=== PATIENT | female | born 1950 | race Caucasian/White ===

== ENCOUNTER → 2019-10-26 | Outpatient (CLI) | payer MEDICARE, OTHER ==
[2019-10-26 21:25] LABS: RHEUMATOID FACTOR-SCREEN <15 IU/mL (0-29)
== END ==
LOC: COL.LAB 10:31
PROVIDERS: Internal Medicine Pulmonary Disease
DX: J84.9 Interstitial pulmonary disease, unspecified (principal)

== ENCOUNTER 2019-12-30 12:50 | Emergency (ER) | payer MEDICARE, OTHER ==
[~2019-12-30] VITALS: Ht 157.5 cm; Wt 84.5 kg
[2019-12-30 12:56] VITALS: BP 149/70; TEMP 98.4
[2019-12-30] MEDS ORDERED: CEPHALEXIN500 M1 PO (13:38)
[2019-12-30] MEDS ORDERED: DOXYCYCLINE 10100 MG PO (13:38)
[2019-12-30 14:00] VITALS: PULSE 72
== END 2019-12-30 14:00 | disposition home or self-care (01) ==
LOC: COL.ER 12:50
DX: L03.211 Cellulitis of face (principal)

== ENCOUNTER 2020-01-24 19:21 | Emergency (ER) | payer MEDICARE, OTHER ==
[~2020-01-24] VITALS: Ht 157.5 cm; Wt 81.8 kg
[~2020-01-24 19:21] MED LIST: CEPHALEXIN500 M1 PO; DOXYCYCLINE 10100 MG PO
[2020-01-24 19:26] VITALS: BP 124/84; PULSE 98; TEMP 98
[2020-01-24] MEDS ORDERED: CELLCEPT 5500 MG/TAB PO (19:43)
[2020-01-24] MEDS ORDERED: GLUCOTROL XL2.5 MG PO (19:43)
[2020-01-24] MEDS ORDERED: LIPITOR 40MG TA40 MG PO (19:44)
[2020-01-24] MEDS ORDERED: ZESTRIL 5MG5 MG PO (19:44)
[2020-01-24] MEDS ORDERED: DOXYCYCLINE 10100 MG PO (19:45)
[2020-01-24] MEDS ORDERED: CEPHALEXIN500 M1 PO (19:45)
== END 2020-01-24 19:49 | disposition home or self-care (01) ==
LOC: COL.ER 19:21
DX: L03.211 Cellulitis of face (principal)

== ENCOUNTER 2020-04-28 22:52 | Inpatient (IN) | payer MEDICARE, OTHER ==
[~2020-04-28] VITALS: Ht 157.5 cm; Wt 78.6 kg
[~2020-04-28 22:52] MED LIST changes: +CELLCEPT 5500 MG/TAB PO; +GLUCOTROL XL2.5 MG PO; +LIPITOR 40MG TA40 MG PO; +ZESTRIL 5MG5 MG PO
[2020-04-28 23:45] LABS: BASO # 0.1 (0.0-0.2); BASO % 0.5 % (0.0-2.0); EOS # 0.2 (0.0-0.7); EOS % 2.3 % (0-4.0); GRAN % 72.6 % (42.2-75.2); HEMATOCRIT 38.7 % (37.0-47.0); HEMOGLOBIN 11.4 g/dl (12.5-16.0); LYMPH # 1.6 (1.2-3.4); LYMPH % 16.8 % (20.0-51.0); MEAN CELL VOLUME 89 fl (80.0-100.0); MEAN CORPUSCULAR HEMOGLOBIN 26 pg (27.0-31.0); MEAN CORPUSCULAR HGB CONC 30 g/dl (33.0-37.0); MEAN PLATELET VOLUME 10.1 fl (7.4-10.4); MONO # 0.7 (0.1-0.6); MONO % 7.6 % (1.7-9.3); PLATELET COUNT 255 K/mm3 (130-400); RED BLOOD COUNT 4.33 M/mm3 (4.10-5.30); REDCELL DISTRIBUTION WIDTH-CV 15.6 % (11.5-14.5)
[2020-04-29] VITALS (7 sets, daily range): BP systolic 121–152; BP diastolic 64–73; PULSE 55–93; TEMP 97.5–98.5
[2020-04-29 00:06] LABS: TROPONIN-I 0.045 ng/mL (0.000-0.035)
[2020-04-29 00:10] LABS: INR 1.3 (0.8-3.0); PROTHROMBIN TIME 14.5 SECONDS (9.7-12.8)
[2020-04-29 00:15] LABS: ALBUMIN 3.6 gm/dL (3.5-5.0); BILIRUBIN,TOTAL 0.4 mg/dL (0.0-1.0); CALCIUM 8.5 mg/dL (8.4-10.2); CREATININE, serum 0.67 (0.52-1.25); POTASSIUM 3.6 mmol/L (3.4-5.0); TOTAL PROTEIN 7.2 gm/dL (6.4-8.2)
[2020-04-29 04:01] LABS: TSH w REFLEX 1.75 uIU/mL (0.465-4.680)
[2020-04-29 04:38] LABS: COLLECTION METHOD CLEAN CATCH
[2020-04-29 04:43] LABS: PH 6 (5-8); SQUAMOUS EPITHELIAL None Seen /hpf; URINE APPEARANCE Clear; URINE BACTERIA None Seen /hpf; URINE BILIRUBIN Negative (NEGATIVE); URINE BLOOD Negative (NEGATIVE); URINE COLOR Colorless; URINE GLUCOSE Negative (NEGATIVE); URINE KETONE Negative (NEGATIVE); URINE LEUKOCYTE ESTERASE Negative (NEGATIVE); URINE NITRATE Negative (NEGATIVE); URINE PROTEIN(semi-quant) Negative (NEGATIVE); URINE RBC None Seen /hpf; URINE UROBILINOGEN Negative (NEGATIVE)
[2020-04-29] MEDS ORDERED: PRILOSEC 20MG20 MG PO (05:39)
[2020-04-29] MEDS ORDERED: [UNRECOGNIZED DRUG - OTHER] PO (05:39)
[2020-04-29] MEDS ORDERED: [UNRECOGNIZED DRUG - OTHER] PO (05:40)
[2020-04-29] MEDS ORDERED: CLEAR LUNGS PO (05:40)
--- NOTE | 2020-04-29 06:12 | NUR ---
PATIENT WAS BROUGHT TO THE FLOOR FROM THE ED. PATIENT IS A SBA IN WITH CHF. PATIENT IS ALERT AND ORIENTATED. WILL REPORT OFF TO DAY SHIFT
[2020-04-29 07:50] LABS: C-REACTIVE PROTEIN 2.8 mg/dL (0.0-0.9); PHOSPHOROUS 4.1 mg/dL (2.5-4.5)
[2020-04-29 08:54] LABS: CALCIUM 8.9 mg/dL (8.4-10.2); CREATININE, serum 0.73 (0.52-1.25)
--- NOTE | 2020-04-29 09:04 | NUR ---
Assessment completed, alert/oriented, vital signs stable, patient reports "feeling about the same" today, she is in no resp.distress at rest but stated with minimal exertion/actvity she gets very dyspnic, lungs are diminished throughout but CTA, heart RRR, distal pulses are palapble, trace-1+ edema to BLE, good UOP with lasix given last night, cardiology consulted, patient sitting up in bed eating breakfast, denies needs
[2020-04-29 09:19] LABS: HEMATOCRIT 39.3 % (37.0-47.0); HEMOGLOBIN 11.8 g/dl (12.5-16.0); MEAN CELL VOLUME 88 fl (80.0-100.0); MEAN CORPUSCULAR HEMOGLOBIN 26 pg (27.0-31.0); MEAN CORPUSCULAR HGB CONC 30 g/dl (33.0-37.0); MEAN PLATELET VOLUME 10.7 fl (7.4-10.4); PLATELET COUNT 311 K/mm3 (130-400); RED BLOOD COUNT 4.47 M/mm3 (4.10-5.30); REDCELL DISTRIBUTION WIDTH-CV 15.8 % (11.5-14.5)
--- NOTE | 2020-04-29 12:36 | NUR ---
SW met with patient about DC plan. Patient in room with Roommate who stated she was the patients caregiver Jaymie Santana . Patient reports that she resides locally. Patient shares that both her DTRs have DPOA and she has already provided that information. Patient gave verbal authorization to speak in front of guest. Patient shares that hse obtains Medications from [employer] and her PCP is Dr. Jodi Lee at [facility]. Patient reports that she O2 at 2 lit at rest daily and 3 lit while walking. Patient reports that she has a transport chair that she uses while in the community but not at home. Declined HHS. No care concerns other than the test results. Brother will transport home. Client reports that he [place] approx. 2 [address] from the hospital. Will continue to follow for care supports.
[2020-04-30] VITALS (19 sets, daily range): BP systolic 93–152; BP diastolic 49–78; PULSE 58–96; TEMP 97.5–98.7
--- NOTE | 2020-04-30 05:43 | NUR ---
PATIENT HAS HAD A RESTFUL NIGHT. PATIENT WAS ON THE EDGE OF THE BED COUGHING AND SAID SHE COULDNT BREATHE. RESPIRATORY IN TO EVALUATE PATIENT. OXYGEN WAS BUMPED DURING THIS TIME AND THEN SHE WAS PLACED BACK ON 3L. PATIENT HAS DENIED ANY OTHER NEEDS THROUGH THE NIGHT AND HAS SLEPT. WILL REPORT OFF TO DAY SHIFT.
[2020-04-30 06:58] LABS: CHOLESTEROL RISK RATIO 3.8; CREATININE, serum 0.97 (0.52-1.25); POTASSIUM 3.7 mmol/L (3.4-5.0)
[2020-04-30 07:01] LABS: BASO # 0.1 (0.0-0.2); BASO % 0.8 % (0.0-2.0); EOS # 0.6 (0.0-0.7); EOS % 6.1 % (0-4.0); GRAN # 5.4 (1.4-6.5); GRAN % 58.2 % (42.2-75.2); HEMATOCRIT 41.5 % (37.0-47.0); HEMOGLOBIN 12.3 g/dl (12.5-16.0); LYMPH # 2.4 (1.2-3.4); LYMPH % 25.8 % (20.0-51.0); MEAN CELL VOLUME 89 fl (80.0-100.0); MEAN CORPUSCULAR HEMOGLOBIN 26 pg (27.0-31.0); MEAN CORPUSCULAR HGB CONC 30 g/dl (33.0-37.0); MEAN PLATELET VOLUME 10.1 fl (7.4-10.4); MONO # 0.8 (0.1-0.6); MONO % 8.9 % (1.7-9.3); PLATELET COUNT 324 K/mm3 (130-400); RED BLOOD COUNT 4.66 M/mm3 (4.10-5.30); REDCELL DISTRIBUTION WIDTH-CV 15.9 % (11.5-14.5)
[2020-04-30 07:14] LABS: TROPONIN-I 0.039 ng/mL (0.000-0.035)
--- NOTE | 2020-04-30 08:16 | NUR ---
Pt resting in bed at this time. Pt alert and oriented x3. Pt denies pain. INT to left wrist patent and without s/s of complications. Pt denies any other needs at this time. Call light within reach. Will continue to monitor
--- NOTE | 2020-04-30 13:44 | NUR ---
SEE MERGE FOR MEDICATION ADMINISTRATION TIMES AND INTRA AND POST SEDATION ASSESSMENTS.
--- NOTE | 2020-04-30 16:45 | NUR ---
No evidence of bleeding noted around right radial site with arm band in place. 5 mls air removed per orders. Call light in reach.
--- NOTE | 2020-04-30 18:40 | NUR ---
No s/s of bleeding to right radial access site. Remaining 9 mls air removed from right wrist band. Band still in place to monitor for bleeding.
--- NOTE | 2020-04-30 19:00 | NUR ---
Pt sitting in bed at this time eating dinner. Complaints of aching pain to lower back throughout shift that was 3/10. INT to left wrist patent and without complications. Left wrist heart cath site free of complications. Pt denies any other needs at this time.
--- NOTE | 2020-04-30 19:11 | NUR ---
Report given to PILAR Long
--- NOTE | 2020-04-30 20:30 | NUR ---
Resting in bed. Assessment complete. Bases bilaterally crackles otherwise clear. Heart sounds normal. Bowels active x4. Pulses present throughout. No edema noted. INT left forearm without complications. Right radial heart cath site CDI with bandaide in place. Patient denies pain. Denies needs. Call light in reach.
--- NOTE | 2020-04-30 21:15 | NUR ---
Patient given bed bath at this time. Right radial site CDI. Denies needs at this time. Call light in reach.
[2020-05-01] VITALS (8 sets, daily range): BP systolic 90–119; BP diastolic 48–64; PULSE 59–85; TEMP 97.6–98.8
--- NOTE | 2020-05-01 02:46 | NUR ---
Patient reports dizziness, headache and inability to keep eyes open. VS stable. BS 113. Patient provided with snack at patient request. Reports "being tired." Educated patient on importance of sleep. Television turned off and lighting decreased. Denies other needs. Call light in reach.
--- NOTE | 2020-05-01 04:00 | NUR ---
Patient reports sx resolving with resting. Will continue to monitor.
--- NOTE | 2020-05-01 06:12 | NUR ---
Patient had x1 episode of dizziness and headache. Resolved with resting. Reports this AM "I havent slept in over 2 days." Patient continues to rest this AM. Otherwise uneventful night.
--- NOTE | 2020-05-01 07:32 | NUR ---
Report given to PILAR Jasso
--- NOTE | 2020-05-01 08:37 | NUR ---
Assessment completed, alert/oriented, vital signs stable / blood pressures are a little soft and will notify hospitalist, heart RRR/ distal pulses are palpable, lungs CTA but very diminished throughtout, dry non-productive cough noted, on baseline 3L. o2, s/p left heart cath yesterday with stents place/ right radial access site bandaid is C/D/I with no hematoma or issues noted, patient stated she does not feel well enought to be discharged today, she is up to bathroom and I have asssited her back to bed, denies other needs at this time
[2020-05-01 11:36] LABS: CREATININE, serum 0.78 (0.52-1.25)
--- NOTE | 2020-05-01 12:03 | NUR ---
SW met with the patient and the patient's roommate/caregiver, Jaymie, to review discharge plan and to discuss PT's recommendation of home health and a FWW. The patient and Jaymie report that the plan is still to return back home upon discharge. Jaymie reports that the patient was receiving pulmonary rehab at the [facility] prior to hospitalization and that they would like to resume that upon discharge instead of home health. The patient also confirmed this. Jaymie reports that they plan to reach out to [place] and schedule an appointment for the pulmonary rehab. The patient and Jaymie report that the patient has a rolaider walker and may even have a FWW somewhere at home. Jaymie reports that she will look for the FWW. The patient and Jaymie had no other questions or concerns for SW. SW to continue to follow as needed.
--- NOTE | 2020-05-01 21:00 | NUR ---
Patient assessed at this time. Alert and oriented x 4, and able to make needs known. Denies having pain and discomfort at this time. Peripheral INT to left wrist. Site without redness, warmth, swelling, and pain. Denies SOB and dyspnea. LS CTA in upper lobes, diminished in lower. On oxygen at 3 L/min via NC. HRR. Capillary refill less than 3 seconds. Non-tenting skin turgor. BSAx4. Abdomen soft and non-tender. No edema. Resting in bed with call light within reach. Bandaid to right wrist, radial site from heart cath is CDI.
[2020-05-02 04:11] VITALS: BP 126/66; PULSE 64; TEMP 97.4
--- NOTE | 2020-05-02 05:11 | NUR ---
Patient has been resting in bed with call light within reach. Had denied having pain and discomfort this shift.
--- NOTE | 2020-05-02 06:11 | NUR ---
Patient woke up with frequent cough. Clear sputum. Unable to control cough for a while, and oxygen saturations decreased to 70s on oxygen at 3 L/min via NC. Increased oxygen level to 5 L/min via NC. As patient's cough stopped, oxygen level increased to 98% on the 5 L. Patient reports she frequently wakes up with these coughing spells and she is used to her oxygen level decreasing at home at these times as well. Patient no longer coughing at this time. Oxygen level 96% on 4 L/min via NC. Denies SOB and dyspnea at this time.
[2020-05-02 06:49] LABS: CALCIUM 8.8 mg/dL (8.4-10.2); CREATININE, serum 0.7 (0.52-1.25); POTASSIUM 4.3 mmol/L (3.4-5.0)
[2020-05-02 07:15] VITALS: BP 99/52; PULSE 64; TEMP 97.7
--- NOTE | 2020-05-02 07:18 | NUR ---
called Dr. Patino to report critical lab value of CO2 41.
--- NOTE | 2020-05-02 09:11 | NUR ---
PT WORKED WITH PHYSICAL THERAPY, MAINTAINED SATS OF 91% ON 6L DURING EXERCISE. PT UPSET SHE HAS NOT BEEN GETTING OMEPRAZOLE FOR HER GERD. UP TO CHAIR EATING BREAKFAST, DID NOT EAT MEAT CLAIMING IT INFLAMES THE GERD. DENIES PAIN OR DISCOMFORT. NO OTHER NEEDS AT THIS TIME. PT REQUESTED A SHOWER BEFORE SHE LEFT.
--- NOTE | 2020-05-02 09:56 | NUR ---
The patient is to discharge back home with her roommate/caregiver today, 05/02, and plans to resume pulmonary rehab at [facility]. SW met with the patient and her roommate and presented and explained the IM form. The patient verbalized understanding and gave SW approval to sign the form on her behalf. No additional needs at this time.
[2020-05-02] MEDS ORDERED: PLAVIX 75MG TAB75 MG PO (11:39)
[2020-05-02] MEDS ORDERED: ASPIRIN E.C. 8181 MG PO (11:40)
--- NOTE | 2020-05-02 11:55 | NUR ---
First visit from the director of testing. No needs right now
== END 2020-05-02 13:05 | disposition home or self-care (01) | DRG 246 ==
LOC: COL.ER 22:52 → MEDICAL 04-29 00:58
PROVIDERS: Emergency Medicine; Nurse Practitioner Family; Physician Assistant; ADMIT Hospitalist
PROC: 027035Z Dilation of Coronary Artery, One Artery with Two Drug-eluting Intraluminal Devices, Percutaneous Approach (ICD-10-PCS; principal; 2020-04-30)
PROC: 4A023N7 Measurement of Cardiac Sampling and Pressure, Left Heart, Percutaneous Approach (ICD-10-PCS; 2020-04-30)
PROC: B2111ZZ Fluoroscopy of Multiple Coronary Arteries using Low Osmolar Contrast (ICD-10-PCS; 2020-04-30)
DX: I21.4 Non-ST elevation (NSTEMI) myocardial infarction (principal); I50.33 Acute on chronic diastolic (congestive) heart failure; E87.3 Alkalosis; J96.11 Chronic respiratory failure with hypoxia; J84.9 Interstitial pulmonary disease, unspecified; R55 Syncope and collapse; E78.5 Hyperlipidemia, unspecified; E11.9 Type 2 diabetes mellitus without complications; K44.9 Diaphragmatic hernia without obstruction or gangrene; K21.9 Gastro-esophageal reflux disease without esophagitis; D64.9 Anemia, unspecified; Z99.81 Dependence on supplemental oxygen; I11.0 Hypertensive heart disease with heart failure; Z96.652 Presence of left artificial knee joint; Z96.642 Presence of left artificial hip joint; Z79.84 Long term (current) use of oral hypoglycemic drugs; Z91.048 Other nonmedicinal substance allergy status
CPT/HCPCS: 99223-AI; 99232-AI; 99239; A9500; C1725; C1769; C1874; C1887; C9600; C9601; J1644; J1650; J1815; J1940; J2250; J2785; J7517; Q9967

== ENCOUNTER 2020-06-10 07:29 | Inpatient (IN) | payer MEDICARE, OTHER ==
[~2020-06-10] VITALS: Ht 157.5 cm; Wt 79.6 kg
[2020-06-10] VITALS (7 sets, daily range): BP systolic 110–142; BP diastolic 63–80; PULSE 65–84; TEMP 97.2–97.9
[~2020-06-10 07:29] MED LIST changes: +ASPIRIN E.C. 8181 MG PO; +CLEAR LUNGS PO; +PLAVIX 75MG TAB75 MG PO; +PRILOSEC 20MG20 MG PO; +[UNRECOGNIZED DRUG - OTHER] PO; +[UNRECOGNIZED DRUG - OTHER] PO
[2020-06-10 07:59] LABS: BASO # 0.1 (0.0-0.2); BASO % 0.5 % (0.0-2.0); EOS # 0.5 (0.0-0.7); EOS % 4.9 % (0-4.0); GRAN # 5.6 (1.4-6.5); GRAN % 60.1 % (42.2-75.2); LYMPH # 2.6 (1.2-3.4); LYMPH % 28.2 % (20.0-51.0); MEAN CELL VOLUME 91 fl (80.0-100.0); MEAN CORPUSCULAR HGB CONC 29 g/dl (33.0-37.0); MEAN PLATELET VOLUME 9.6 fl (7.4-10.4); MONO # 0.6 (0.1-0.6); PLATELET COUNT 322 K/mm3 (130-400); RED BLOOD COUNT 3.78 M/mm3 (4.10-5.30); REDCELL DISTRIBUTION WIDTH-CV 17.2 % (11.5-14.5)
[2020-06-10 08:05] LABS: ALANINE AMINOTRANSFERASE 10 U/L (4-34); ALBUMIN 3.3 gm/dL (3.5-5.0); ALKALINE PHOSPHATASE 70 U/L (50-136); ANION GAP 6 mmol/L (7-16); AST,SGOT 19 U/L (15-37); BILIRUBIN,TOTAL 0.5 mg/dL (0.0-1.0); BLOOD UREA NITROGEN 16 mg/dL (7-17); CALCIUM 8.3 mg/dL (8.4-10.2); CARBON DIOXIDE 29 mmol/L (22-30); CHLORIDE 102 mmol/L (98-107); CREATININE, serum 0.83 (0.52-1.25); GLUCOSE 163 mg/dL (74-106); HEMATOCRIT 34.4 % (37.0-47.0); HEMOGLOBIN 9.9 g/dl (12.5-16.0); MEAN CORPUSCULAR HEMOGLOBIN 26 pg (27.0-31.0); POTASSIUM 3.8 mmol/L (3.4-5.0); SODIUM 137 mmol/L (137-145); TOTAL PROTEIN 6.7 gm/dL (6.4-8.2)
[2020-06-10 08:06] LABS: LIPASE < 10 U/L (23-300)
[2020-06-10 08:09] LABS: INR 1.3 (0.8-3.0); PROTHROMBIN TIME 15.1 SECONDS (9.7-12.8)
[2020-06-10 08:16] LABS: COLLECTION METHOD CATHETER
[2020-06-10 08:17] LABS: TROPONIN-I 0.026 ng/mL (0.000-0.035)
[2020-06-10] MEDS ORDERED: PRINIVIL5 MG PO (08:36)
[2020-06-10] MEDS ORDERED: PROTONIX 40MG T40 MG PO (08:37)
[2020-06-10 08:48] LABS: MUCOUS Present /lpf; PH 6 (5-8); SQUAMOUS EPITHELIAL None Seen /hpf; URINE APPEARANCE Clear; URINE BACTERIA Rare /hpf; URINE BILIRUBIN Negative (NEGATIVE); URINE BLOOD Negative (NEGATIVE); URINE COLOR Yellow; URINE GLUCOSE Negative (NEGATIVE); URINE KETONE Negative (NEGATIVE); URINE LEUKOCYTE ESTERASE Trace (NEGATIVE); URINE NITRATE Negative (NEGATIVE); URINE PROTEIN(semi-quant) 1+ (NEGATIVE); URINE RBC 0-2 /hpf; URINE UROBILINOGEN Negative (NEGATIVE)
[2020-06-10 10:08] LABS: ARTERIAL BLD GAS TCO2 CT 31.7; ARTERIAL BLOOD GAS BASE EXCESS 4.5 (-2-2); ARTERIAL BLOOD GAS HCO3 30.2 meq/L (22-26); ARTERIAL BLOOD GAS PO2 164.3 mmHg (80-100)
--- NOTE | 2020-06-10 11:44 | NUR ---
Patient valuables envelope placed in HS safe.
[2020-06-10] MEDS ORDERED: PLAVIX 75MG TAB75 MG PO (11:55)
[2020-06-10 16:20] LABS: HEMATOCRIT 38.8 % (37.0-47.0); HEMOGLOBIN 11.3 g/dl (12.5-16.0)
--- NOTE | 2020-06-10 17:20 | NUR ---
Pt up to room 310 around 1030 am. Pt assisted onto bed off stretcher from ER. Pt A&O, SBA in room. Pt on 3-3.5L NC. Difficult to get good O2 sat reading on pt at first, extremities cold. Eventually able to get decent reading, pt satting between 92-95%. Pt c/o SOB. Denies chest pain, N/V/D, abdominal pain, numbness or tingling. Pt has RFA INT IV, flushes w/o difficulty. Coarse crackles, LS. HRR. BS active X4. Radial pulses strong bilaterally. Bilateral feet edema 2-3+, ankles/LE edema 2+. Pt denies any other needs at this time.
--- NOTE | 2020-06-10 18:15 | NUR ---
Cards consult made to Dr. Valderrama, pt follows him for cardiology outpt. Troponin elevated from 0.026 to 0.153, physician aware and will see pt in morning. ENEDELIA Ochoa also notified, more troponin labs ordered for tonight.
--- NOTE | 2020-06-10 21:30 | NUR ---
ENEDELIA Ochoa notified of critical Troponin level of 0.176. She stated cardiology was aware of the elevated troponin earlier today and was planning to see her in the morning. Will recheck Troponin level in the morning. Will continue to monitor.
[2020-06-11] VITALS (8 sets, daily range): BP systolic 116–168; BP diastolic 58–70; PULSE 62–83; TEMP 97.4–98.8
--- NOTE | 2020-06-11 00:56 | NUR ---
Patient has slept off and on so far this shift. Respiratory therapy educated patient on BiPAP usage. Patient wore it for awhile, then became very upset and stated that "you just come in here and do whatever you want with me without explaining what you're doing." Patient educated on the importance of wearing the BiPAP. Continues to refuse at this time. Will continue to attempt to have patient wear it. INT to right wrist flushes with ease. Patient noted to take shallow breathes, even when staff attempts to have patient take deep breathes. Wearing 3L of oxygen currently. Will continue to monitor patient.
--- NOTE | 2020-06-11 05:28 | NUR ---
Patient expressed anxiety with BIPAP usage. Staff verbalized understanding and talked it through with patient. Patient stated she was going to try her best to keep using the BiPAP. States she coughs frequently and states she will take the mask off when she starts to cough. Will continue to monitor.
[2020-06-11 06:24] LABS: BASO # 0.1 (0.0-0.2); EOS # 0.5 (0.0-0.7); EOS % 5.4 % (0-4.0); GRAN # 4.9 (1.4-6.5); GRAN % 59.1 % (42.2-75.2); HEMOGLOBIN 10.6 g/dl (12.5-16.0); LYMPH # 2.1 (1.2-3.4); LYMPH % 25.1 % (20.0-51.0); MEAN CELL VOLUME 91 fl (80.0-100.0); MEAN CORPUSCULAR HEMOGLOBIN 27 pg (27.0-31.0); MEAN CORPUSCULAR HGB CONC 29 g/dl (33.0-37.0); MEAN PLATELET VOLUME 9.7 fl (7.4-10.4); MONO # 0.8 (0.1-0.6); MONO % 9.2 % (1.7-9.3); PLATELET COUNT 343 K/mm3 (130-400); RED BLOOD COUNT 3.98 M/mm3 (4.10-5.30); REDCELL DISTRIBUTION WIDTH-CV 17.3 % (11.5-14.5)
[2020-06-11 06:29] LABS: HEMATOCRIT 36.2 % (37.0-47.0)
[2020-06-11 06:35] LABS: CALCIUM 8.5 mg/dL (8.4-10.2); CREATININE, serum 1.02 (0.52-1.25); MAGNESIUM 2.2 mg/dL (1.6-2.3); POTASSIUM 3.8 mmol/L (3.4-5.0)
--- NOTE | 2020-06-11 07:22 | NUR ---
PATIENT WORE BIPAP LAST NOC.
--- NOTE | 2020-06-11 08:01 | NUR ---
PT AOX4. ASSISTED STANDBY TO BSC. DENIES PAIN. TAKEN OFF BIPAP AND PLACED ON HOME 4L NC. UNHAPPY WITH HAVING TO WEAR BIPAP BUT STATES SHE TOLERATED FINE
--- NOTE | 2020-06-11 13:11 | NUR ---
SW met with the patient to discuss discharge plan. The patient lives in [place] with her friend and caregiver, Jaymie Santana (ph#[phone]). She reports independence with ADLs and has a cane, walker, transport chair, and continuous home oxygen from [facility]. She reports that she is unhappy with [facility] and would like to switch to another oxygen supplier. The patient's PCP is Dr. Jodi Marsh and she receives her medications at [facility]. She reports no difficulties obtaining her meds. The patient's DPOA-HC is in EMR. Her DPOA-HC is her daughter, Lona Lemus (ph#[phone]). The alternate is her other daughter, Karlie Perales (ph#[phone]). The hospitalist and clinical social worker are recommending [facility]. SW discussed this with the patient. The patient's friend, Jaymie, was on speaker phone. The patient and Jaymie are unsure about going to [facility], but were agreeable for JUAN MANUEL to send a referral. Jaymie would like an update from the hospitalist. JUAN MANUEL contacted and faxed a referral to Ifrah at [facility]. SW awaiting their screen.
--- NOTE | 2020-06-11 20:00 | NUR ---
Report received, assumed care for overnight stocker. Assessment complete. A&Ox3-drowsy. VS stable. Denies pain/nausea. States she does have shortness of breathe with activity. O2 remains at 3.5L/NC. Reports a non productive cough. TELE with NSR. INT to left forearm flushes without difficulty. Plan of care discussed for NPO at midnight for possible procedures in AM. Verbalizes understanding. Denies questions/concerns. Call light in reach/bed alarm on. Will continue to monitor.
[2020-06-12] VITALS (7 sets, daily range): BP systolic 116–149; BP diastolic 61–84; PULSE 80–100; TEMP 97.5–98.9
--- NOTE | 2020-06-12 05:00 | NUR ---
Rested off and on this shift. Has been NPO since midnight for possible loop recorder. Refused to wear BiPAP-O2 remained at 4L/NC. Still need a stool specimen and last stool had urine mixed in. Denies needs. Call light in reach. Will monitor.
--- NOTE | 2020-06-12 08:15 | NUR ---
PATIENT DID NOT WEAR BIPAP LAST NOC
--- NOTE | 2020-06-12 09:00 | NUR ---
Assessment complete. Patient sitting up in bed at this time, looks uncomfortable but states the opposite. She is aware of the loop recorder placement and her POC at this time. She denies pain at this time. Oxygen saturation was low earlier this morning but pt stated she felt that it was because her nose was stuffy. RT was notified of this, oxymax was provided per reccomendation and this imrpoved her breathing. IV site is CD&I, flushed well. No other needs were expressed at this time. CAll light is in reach.
--- NOTE | 2020-06-12 11:00 | NUR ---
At this time pt refused newly prescribed blood pressure medications, stating "I do not have blood pressure problems. If it is high it is because I was doing something and it will go back down, I promise." I informed her that she had the right to refuse the medications and she did. I notified Dr. Patino of this, he stated this was fine. Continuing to monitor. Call light is in reach.
--- NOTE | 2020-06-12 13:00 | NUR ---
Pt sitting up in recliner for lunch. States she is comfortable at this time, no needs. Will readjust for comfort after she eats as patient was napping earlier and looked uncomfortable. No other needs. Call light is in reach.
--- NOTE | 2020-06-12 13:35 | NUR ---
Pt ambulated to [facility] via standby/min assist, gait was steady. Pt becam SOB after ambulation and felt light headed. I reminded the pt to breath in through her nose and out her mouth in order to ensure she is gettitng the oxygen via her nasal cannula. This helped and she stated she felt better. Pt sitting back in recliner at this time. No other needs were expressed. Call light is in reach.
--- NOTE | 2020-06-12 14:03 | NUR ---
SVN GIVEN TOLERATED WELL
--- NOTE | 2020-06-12 15:06 | NUR ---
BIPAP REMOVED FROM ROOM, PATIENT TOO ANXIOUS TO WEAR IT AND AT PATIENT REQUEST.
--- NOTE | 2020-06-12 15:23 | NUR ---
JUAN MANUEL met with the patient to follow up about [facility]. The patient reports that she is agreeable with going to [facility] now. She is scheduled to have a loop recorder placed today. JUAN MANUEL contacted and updated the patient's daughter/DPOA-HC, Lona Lemus, to discuss [facility] and the tentative discharge plan. Lona is agreeable with the patient going to [facility]. She states that she plans to contact the rest of her siblings to discuss [facility]. Lona reports that she still has some questions about the facility and program. JUAN MANUEL attempted to contact Ifrah at [facility] to request for her to contact the daughter. JUAN MANUEL left her a voicemail.
--- NOTE | 2020-06-12 18:15 | NUR ---
Patient has had a good day. I spoke with her about the delayed loop recorder placement and explained that cardiology is very back up today, she was very understanding. Patient has not had any pain all day. She was up in her recliner for a good part of the day. I assisted her to BSC for urination and a bowel movement. Pt ambulated well. Pts breathing has also imrpoved since this morning, no issues through the day, oxygen saturations stable. No other needs at this time. CAll light is in reach.
--- NOTE | 2020-06-12 22:39 | NUR ---
Pt assessment completed and charted, NC 4 lit, alert, oriented. Rest of the meds provided as per MAR, pt refused her Novolog scale insulin instead of education. No N/V/D, pain, numbness, tingling, SOB as per pt at this time. Helped pt to settled down on bed, call light on reach. No further needs at this time.
[2020-06-13 03:47] VITALS: BP 126/70; PULSE 80; TEMP 98
[2020-06-13 05:57] LABS: BASO # 0.1 (0.0-0.2); BASO % 1.1 % (0.0-2.0); EOS # 0.8 (0.0-0.7); EOS % 8.4 % (0-4.0); GRAN # 5.8 (1.4-6.5); GRAN % 63.3 % (42.2-75.2); LYMPH # 1.7 (1.2-3.4); LYMPH % 18.8 % (20.0-51.0); MEAN CELL VOLUME 91 fl (80.0-100.0); MEAN CORPUSCULAR HEMOGLOBIN 26 pg (27.0-31.0); MEAN CORPUSCULAR HGB CONC 29 g/dl (33.0-37.0); MEAN PLATELET VOLUME 9.9 fl (7.4-10.4); MONO # 0.8 (0.1-0.6); MONO % 8.2 % (1.7-9.3); PLATELET COUNT 319 K/mm3 (130-400); RED BLOOD COUNT 4.19 M/mm3 (4.10-5.30); REDCELL DISTRIBUTION WIDTH-CV 17.3 % (11.5-14.5)
[2020-06-13 06:07] LABS: CALCIUM 8.5 mg/dL (8.4-10.2); CREATININE, serum 0.76 (0.52-1.25)
[2020-06-13 06:08] LABS: POTASSIUM 3.5 mmol/L (3.4-5.0)
--- NOTE | 2020-06-13 06:23 | NUR ---
Pt had dry cough and nausea through out the night, pt stated that "she is going to be fine and she does not want any medicine for that". Pt also refused morning meds/imdur. Call light on reached, no further needs at this time.
--- NOTE | 2020-06-13 07:19 | NUR ---
Report given to PILAR Welch.
[2020-06-13 07:55] VITALS: BP 142/81; PULSE 81; TEMP 98
--- NOTE | 2020-06-13 09:39 | NUR ---
Assessment complete. Patient sitting up in bed at this time, just finished breakfast. Refused her blood pessure medication this morning stating "If my pressure is fine I do not need it, I have never needed that". IV site is CD&I, flushed well. No pain or discomfort reported. Wanted to wait an hour after eating to take her cellcept. Dry cough is persistent but chronic. No other needs were expressed at this time. Call light is in reach.
[2020-06-13 11:48] VITALS: BP 139/72; PULSE 92; TEMP 98.5
--- NOTE | 2020-06-13 13:18 | NUR ---
Patient requested to only recieve 2 units of insulin rather than the 4 prescribed as she was aprehensive that her sugar would drop. 2 were provided, patient ate 100% of her lunch. Will continue to monitor.
--- NOTE | 2020-06-13 13:42 | NUR ---
PATIENT DROPPED TO 68% SPO2 ON RA. SPO2 ON 4LPM SITTING 90% AFTER 5 MINUTES. PATIENT BENEFITS WITH OXYMASK AT 4LPM.
--- NOTE | 2020-06-13 14:17 | NUR ---
Ifrah, at [facility], reports that after further review of the patient's updates, the patient is close to being back at her baseline. She states that since the patient is not using a bipap and she is going to be switched to oral antibiotics, then she will would not really qualify for a stay anymore and would want to know what our clinical team's plan is for her. JUAN MANUEL notified the hospitalist of this. The hospitalist was in agreeance to this. JUAN MANUEL then attended clinical rounds. The hospitalist updated the patient about [facility]. The patient reports that she is still concerned about returning home and having a fall. She states that her friend/caregiver would not be able to pick her up. The hospitalist and SW disussed post-acute rehab. The patient reports that she would be agreeable to post-acute rehab. SW provided the patient with [employer]'s list of SNFs in the [facility]. The patient chose 1) [facility] 2) [facility]. JUAN MANUEL contacted and faxed a referral to Jenn at [facility]. JUAN MANUEL consulted I[facility] Director, Yamileth. JUAN MANUEL then contacted and updated the patient's daughter, Lona. Lona reports that her and her siblings have lots of questions for the doctor and feel like the patient needs to have more tests done, before she should be discharged anywhere. JUAN MANUEL notified the hospitalist of this. SW awaiting screens and will continue to follow.
--- NOTE | 2020-06-13 15:47 | NUR ---
Jenn, at [facility], reports that they are able to accept the patient for a skilled stay. SW to inform the patient and her daughter and will continue to follow.
--- NOTE | 2020-06-13 16:03 | NUR ---
Patient currently sitting comfortably in her recliner. Denies needs at this time. Call light is in reach.
[2020-06-13 17:26] VITALS: BP 134/64; PULSE 76; TEMP 97.5
[2020-06-13 20:01] VITALS: BP 129/65; PULSE 87; TEMP 97.8
--- NOTE | 2020-06-13 22:50 | NUR ---
Pt assessment completed and charted, alert, oriented, roomair. Meds provided as per MAR, tolerated well. No N/V/D, numbness, tingling, SOB, pain as per pt. I/V fluid running without complications. Changed his bedding, helped him settled down on bed, call light on reach. No further needs at this time.
[2020-06-13 23:23] VITALS: BP 125/60; PULSE 84; TEMP 97.9
--- NOTE | 2020-06-14 01:33 | NUR ---
Pt assessment completed, charted, alert, oriented, NC 4lit. on oxymask. Meds provided as per JAN, tolerated well. I/V line flushed well without complications. Pt Only wanted 2 units of insulin instead of using her sliding scale. Stated that her body aches, so massaged her back with body lotion. Helped her settled down on her bed, call light on reach. No further needs at this time.
[2020-06-14 03:47] VITALS: BP 127/74; PULSE 83; TEMP 98.2
[2020-06-14 06:34] LABS: BASO # 0.1 (0.0-0.2); BASO % 1.1 % (0.0-2.0); EOS # 0.8 (0.0-0.7); EOS % 8.5 % (0-4.0); GRAN # 5.3 (1.4-6.5); GRAN % 58.3 % (42.2-75.2); HEMATOCRIT 38.6 % (37.0-47.0); HEMOGLOBIN 11.3 g/dl (12.5-16.0); LYMPH # 2.2 (1.2-3.4); LYMPH % 24.1 % (20.0-51.0); MEAN CELL VOLUME 91 fl (80.0-100.0); MEAN CORPUSCULAR HEMOGLOBIN 27 pg (27.0-31.0); MEAN CORPUSCULAR HGB CONC 29 g/dl (33.0-37.0); MEAN PLATELET VOLUME 10.1 fl (7.4-10.4); MONO # 0.7 (0.1-0.6); MONO % 7.7 % (1.7-9.3); PLATELET COUNT 325 K/mm3 (130-400); RED BLOOD COUNT 4.23 M/mm3 (4.10-5.30); REDCELL DISTRIBUTION WIDTH-CV 17.4 % (11.5-14.5)
[2020-06-14 06:47] LABS: CALCIUM 8.2 mg/dL (8.4-10.2); CREATININE, serum 0.8 (0.52-1.25)
--- NOTE | 2020-06-14 07:08 | NUR ---
Report given to PILAR Law
--- NOTE | 2020-06-14 07:21 | NUR ---
Pt slept on and off through night. Pt had dry cough for sometime, increased oxygen to 5 lit for 10 minutes and reduced to 4 lit, pt doing well. No further needs at this time.
[2020-06-14 08:01] VITALS: BP 125/69; PULSE 86; TEMP 97.8
[2020-06-14] MEDS ORDERED: IMDUR 30MG30 MG/TAB PO (08:41)
--- NOTE | 2020-06-14 09:58 | NUR ---
The patient is to tentatively discharge today, pending COVID results. JUAN MANUEL notified and faxed updates to Jenn at [facility]. SW contacted and updated the patient's daughter, Lona. Lona is agreeable with the patient going to [facility]. JUAN MANUEL also presented and read the IM form outloud to the patient. The patient verbalized understanding and gave JUAN MANUEL approval to sign the form on her behalf. JUAN MANUEL provided her with a copy. SW to continue to follow.
[2020-06-14 11:29] VITALS: BP 113/68; PULSE 85; TEMP 97.6
--- NOTE | 2020-06-14 13:03 | NUR ---
Pt laying in bed at this time. No complaints. Call light within reach, bed alarm on.
--- NOTE | 2020-06-14 16:08 | NUR ---
PT IS LAYING IN BED WITH OXYMASK ON. PT STATES SHE HAS NO NEEDS AT THIS TIME. CALL LIGHT WITHIN REACH, NO FURTHER CONCERNS.
[2020-06-14 16:20] VITALS: BP 121/69; PULSE 79; TEMP 97.5
--- NOTE | 2020-06-14 17:50 | NUR ---
PT HAS HAD AN UNEVENTFUL DAY. SHE HAS BEEN BACK AND FORTH BETWEEN RECLINER AND BED. SHE HAS BEEN AMBULATING TO THE BATHROOM AND BACK WITH A STEADY GAIT. PT IS STILL PENDING COVID, AND [facility]
[2020-06-14 18:54] VITALS: BP 131/89; PULSE 93; TEMP 97.6
--- NOTE | 2020-06-14 19:09 | NUR ---
REPORT GIVEN TO PILAR SMITH
[2020-06-15] VITALS (8 sets, daily range): BP systolic 96–139; BP diastolic 58–103; PULSE 74–103; TEMP 97.3–98.5
--- NOTE | 2020-06-15 00:16 | NUR ---
Pt assessment completed, charted, alert and oriented, 4 lit oxymask. Meds provided as per JAN, tolerated well, pt requested for 2 unit insulin instead of sliding scale, 6 unit. I/V flushed without complications. Helped pt to settled down on bed, call light on reach. No further needs at this time.
[2020-06-15 06:19] LABS: BASO # 0.1 (0.0-0.2); BASO % 0.9 % (0.0-2.0); EOS # 0.9 (0.0-0.7); EOS % 7.8 % (0-4.0); GRAN # 7.8 (1.4-6.5); GRAN % 67.6 % (42.2-75.2); HEMATOCRIT 39.7 % (37.0-47.0); HEMOGLOBIN 11.5 g/dl (12.5-16.0); LYMPH # 1.9 (1.2-3.4); LYMPH % 16.4 % (20.0-51.0); MEAN CELL VOLUME 91 fl (80.0-100.0); MEAN CORPUSCULAR HEMOGLOBIN 26 pg (27.0-31.0); MEAN CORPUSCULAR HGB CONC 29 g/dl (33.0-37.0); MEAN PLATELET VOLUME 9.6 fl (7.4-10.4); MONO # 0.8 (0.1-0.6); PLATELET COUNT 308 K/mm3 (130-400); RED BLOOD COUNT 4.35 M/mm3 (4.10-5.30); REDCELL DISTRIBUTION WIDTH-CV 17.3 % (11.5-14.5)
--- NOTE | 2020-06-15 06:22 | NUR ---
Pt slept on and off through out the night. Morning meds provided as per JAN. No further needs at this time.
[2020-06-15 06:31] LABS: CALCIUM 8.6 mg/dL (8.4-10.2); CREATININE, serum 0.78 (0.52-1.25); POTASSIUM 3.6 mmol/L (3.4-5.0)
--- NOTE | 2020-06-15 07:06 | NUR ---
Report given to PILAR Law.
[2020-06-15 10:20] LABS: ARTERIAL BLOOD GAS PCO2 51.2 mmHg (35-45); ARTERIAL BLOOD GAS pH 7.41 (7.35-7.45)
[2020-06-15 10:21] LABS: ARTERIAL BLD GAS O2 SATURATION 92.7 % (92-100); ARTERIAL BLD GAS TCO2 CT 33.4; ARTERIAL BLOOD GAS BASE EXCESS 6.1 (-2-2); ARTERIAL BLOOD GAS HCO3 31.8 meq/L (22-26); ARTERIAL BLOOD GAS PO2 75.2 mmHg (80-100)
--- NOTE | 2020-06-15 15:23 | NUR ---
The patient's COVID results came back negative. JUAN MANUEL attended clinical rounds. The patient was lightheaded after working with PT and her pressures dropped. An EKG and ABG were ordered. The patient is to tentatively discharge tomorrow or Thursday. JUAN MANUEL contacted and updated the patient's daughter, Lona. Lona is agreeable to the plan. JUAN MANUEL contacted and faxed updates to Jenn at [facility]. SW to continue to follow.
--- NOTE | 2020-06-15 19:45 | NUR ---
REPORT GIVEN TO PILAR BONILLA.
--- NOTE | 2020-06-15 21:57 | NUR ---
PATIENT WAS WORRIED ABOUT TAKING 6 UNITS OF INSULIN WITH HER HS MEDICATIONS. NURSE EDUCATED THE PATIENT THAT A BEDTIME SNACK CAN BE GIVEN TO HER AND WE CAN CHECK HER BLOOD SUGAR IF SHE FEELS LIKE ITS DROPPING. A SNACK OF SOME CRACKERS AND PEANUT BUTTER WAS GIVEN TO HER.
[2020-06-16] VITALS (8 sets, daily range): BP systolic 116–134; BP diastolic 60–73; PULSE 8–89; TEMP 97.5–97.9
--- NOTE | 2020-06-16 04:31 | NUR ---
PATIENT HAS BEEN ABLE TO REST THROUGH THE NIGHT. PATIENT HAS NOT HAD ANY ISSUES WITH BLOOD SUGARS. PATIENT DID HAVE A SNACK BEFORE SHE WENT TO BED. PATIENT WAS UP TO USE THE RESTROOM A COUPLE OF TIMES. PATIENT CONTINUES TO HAVE A DRY HACKY COUGH. PATIENT IS ON THE OXYMASK TO RECIEVE OXYGEN. PATIENT DENIES ANY OTHER NEEDS. WILL REPORT OFF TO DAY SHIFT
[2020-06-16 06:54] LABS: BASO % 0.1 % (0.0-2.0); GRAN # 5.7 (1.4-6.5); GRAN % 85.7 % (42.2-75.2); HEMATOCRIT 37.9 % (37.0-47.0); HEMOGLOBIN 11.1 g/dl (12.5-16.0); LYMPH # 0.9 (1.2-3.4); LYMPH % 12.9 % (20.0-51.0); MEAN CELL VOLUME 91 fl (80.0-100.0); MEAN CORPUSCULAR HEMOGLOBIN 27 pg (27.0-31.0); MEAN CORPUSCULAR HGB CONC 29 g/dl (33.0-37.0); MEAN PLATELET VOLUME 10.5 fl (7.4-10.4); MONO # 0.1 (0.1-0.6); PLATELET COUNT 308 K/mm3 (130-400); RED BLOOD COUNT 4.18 M/mm3 (4.10-5.30); REDCELL DISTRIBUTION WIDTH-CV 17.1 % (11.5-14.5)
[2020-06-16 07:10] LABS: CALCIUM 8.8 mg/dL (8.4-10.2); CREATININE, serum 0.67 (0.52-1.25); POTASSIUM 5.1 mmol/L (3.4-5.0)
--- NOTE | 2020-06-16 10:26 | NUR ---
PT AOX4. DENIES PAIN. STANDBY AMBULATION. ORTHO BP UNCHANGED. CONSTANT NON PRODUCTIVE COUGH, STRONG. ON TELE. AWAITING DISCHARGE. NO NEW CONCERNS
--- NOTE | 2020-06-16 12:08 | NUR ---
SW update. [facility] denied transfer today. [facility] wants to wait until tomorrow possibly.
--- NOTE | 2020-06-16 21:15 | NUR ---
Assessment complete. Standby assist up to bathroom. Denies pain/discomfort. request water, provided. Denies other needs at this time.
[2020-06-17] VITALS (7 sets, daily range): BP systolic 117–139; BP diastolic 62–77; PULSE 76–88; TEMP 97.7–98.7
[2020-06-17 07:39] LABS: BASO # 0.1 (0.0-0.2); BASO % 0.6 % (0.0-2.0); EOS # 0.3 (0.0-0.7); EOS % 3.6 % (0-4.0); GRAN # 5.9 (1.4-6.5); GRAN % 62.3 % (42.2-75.2); HEMATOCRIT 38.7 % (37.0-47.0); HEMOGLOBIN 11.3 g/dl (12.5-16.0); LYMPH # 2.5 (1.2-3.4); LYMPH % 26.5 % (20.0-51.0); MEAN CELL VOLUME 91 fl (80.0-100.0); MEAN CORPUSCULAR HEMOGLOBIN 27 pg (27.0-31.0); MEAN CORPUSCULAR HGB CONC 29 g/dl (33.0-37.0); MONO # 0.6 (0.1-0.6); MONO % 6.8 % (1.7-9.3); PLATELET COUNT 322 K/mm3 (130-400); RED BLOOD COUNT 4.24 M/mm3 (4.10-5.30); REDCELL DISTRIBUTION WIDTH-CV 17.2 % (11.5-14.5)
[2020-06-17 07:49] LABS: CALCIUM 8.9 mg/dL (8.4-10.2); CREATININE, serum 0.73 (0.52-1.25); POTASSIUM 4.3 mmol/L (3.4-5.0)
--- NOTE | 2020-06-17 09:00 | NUR ---
Patient sitting up in bed on her ipad. A&Ox3. VSS 5L NC O2. No reported SOB. IV CDI. Patient can be heard coughing from the room. Patient is possibly leaving today. Patient not happy with her blood sugars, nurse informed the patient that it can change while being in the hospital and she is also on steroids. No further needs expressed from the patient. Call light within reach
[2020-06-17] MEDS ORDERED: NOVOLOG 100U100 U/M1 SQ (09:01)
--- NOTE | 2020-06-17 14:49 | NUR ---
[facility] denied discharge for the day, will possibly accept tomorrow. Nurse spoke with SW about patient reservations about going to [facility]. SW met with patient and discussed services provided by [facility], and answered questions. Patient indicated that she felt better about going.
--- NOTE | 2020-06-17 17:20 | NUR ---
Patient had an uneventful day. Spent the day in bed. Can be heard from nurses station coughing throughout the shift. VSS 3L [place] O2. No reported SOB. Denies pain and discomfort. IV CDI. WBG WNL. Patient was hoping to DC today and is not looking forward to getting swabbed again for Covid to go to SNF. Call light within reach
[2020-06-18 04:05] VITALS: BP 126/74; PULSE 86; TEMP 98.6
--- NOTE | 2020-06-18 05:13 | NUR ---
PATIENT HAS HAD AN UNEVENTFUL NIGHT. SHE IS WORRIED ABOUT WHAT TYPE OF MEDICATION SHE WILL BE ON WHEN SHE LEAVES THE HOSPITAL. TALKED TO PATIENT ABOUT WHAT THE DOCTORS NOTE SAYS. PATIENT WANTS TO DO WHAT IS RIGHT SO SHE CAN GO SEE WHIT. PATIENT HAS DENIED ANY PAIN FOR THIS NURSE. INT TO THE [facility] STILL INTACT. PATIENT IS ALERT AND ORIENTATED. DENIES ANY OTHER NEEDS. WILL REPORT OFF TO DAY SHIFT.
[2020-06-18 07:26] VITALS: BP 135/55; PULSE 81; TEMP 98.2
--- NOTE | 2020-06-18 10:08 | NUR ---
Senior Landscape Architect faxed updates and discharge orders to Jenn with [facility]. SW presented the IM form to the patient. The patient understood and signed the form. A copy was provided to the patient and original was placed in the chart. Awaiting rapid Covid-19 test, for [facility] team to review updates and transportation time. Will continue to follow.
--- NOTE | 2020-06-18 12:18 | NUR ---
The patient is to tentatively discharge home with her caregiver today, 06/18. The patient's daughter, Lona contacted [facility] and was concerned about the pateint going to [facility] due to Covid-19 outbreak there. The patient is too functional for [facility]. Lona states she spoke to the patient and the patient's caregiver, Jaymie and they both agreed for the patient to go home. SW met with the patient and Jaymie via speaker phone. The patient would like to go home and Jaymie was agreeable to caring for the patient's needs. Jaymie states she and the patient are together all day. SW discussed having [facility]. They both declined due to the potential for Covid-19 exposure. The patient states that Jamyie used to work in a [place] and "knows what to do." SW informed Jaymie and the patient they have a 30 day window if they get home and find that she needs post acute rehab. They understood. [facility]EL informed the team. There are no additional needs at this time.
[2020-06-18 12:23] VITALS: BP 118/68; PULSE 69; TEMP 97.9
--- NOTE | 2020-06-18 15:32 | NUR ---
PATIENT DC TO HOME @ 1520 VIA PRIVATE VEHICLE ACCOMPANIED BY FRIEND AND WIRELESS ENGINEER. PRINTED DC INSTRUCTIONS TO INCLUDE MEDICATIONS, FOLLOW UP, AND DISCHARGE DIAGNOSIS REVIEWED WITH PATIENT. ALL QUESTIONS AND CONCERNS ADRESSED DURING REVIEW. ACKNOWLEDGED UNDERSTANDING. AT TIME OF DC PATIENT A/O X 4. NO COMPLAINTS OR CONCERNS. 210 DOLLARS IN QUINN RETURNED TO PATIENT FROM HOSPITAL [facility]. MONEY COUNTED IN FRONT OF PATIENT WITH HER ACKNOWLEDGING CORRECT AMOUNT. LEFT UNIT IN WC WITH OXYGEN ACCOMPANIED BY THIS NURSE AND PCT.
== END 2020-06-18 15:15 | disposition home or self-care (01) | DRG 260 ==
LOC: COL.ER 07:29 → MEDICAL 10:12
PROVIDERS: Emergency Medicine; Family Medicine; Physician Assistant; Student in an Organized Health Care Education/Training Program; ADMIT Internal Medicine
PROC: 0JH632Z Insertion of Monitoring Device into Chest Subcutaneous Tissue and Fascia, Percutaneous Approach (ICD-10-PCS; principal; 2020-06-13)
DX: I95.1 Orthostatic hypotension (principal); I50.33 Acute on chronic diastolic (congestive) heart failure; J96.11 Chronic respiratory failure with hypoxia; J84.9 Interstitial pulmonary disease, unspecified; N39.0 Urinary tract infection, site not specified; I82.811 Embolism and thrombosis of superficial veins of right lower extremity; R55 Syncope and collapse; E78.5 Hyperlipidemia, unspecified; E11.9 Type 2 diabetes mellitus without complications; D64.9 Anemia, unspecified; R32 Unspecified urinary incontinence; K44.9 Diaphragmatic hernia without obstruction or gangrene; K21.9 Gastro-esophageal reflux disease without esophagitis; I25.10 Atherosclerotic heart disease of native coronary artery without angina pectoris; E87.5 Hyperkalemia; Z20.828 Contact with and (suspected) exposure to other viral communicable diseases; R78.89 Finding of other specified substances, not normally found in blood; R53.81 Other malaise; Z79.84 Long term (current) use of oral hypoglycemic drugs; Z79.82 Long term (current) use of aspirin; Z95.5 Presence of coronary angioplasty implant and graft; Z96.652 Presence of left artificial knee joint; Z96.642 Presence of left artificial hip joint
CPT/HCPCS: 99222-AI; 99232-AI; 99233-AI; 99239; C1764; J0696; J1200; J1815; J1940; J2250; J2930; J7040; J7517; Q9967